=== PATIENT | male | born 1960 | race Caucasian/White ===

== ENCOUNTER 2016-10-22 14:04 | Emergency (ER) | payer MEDICAID ==
[~2016-10-22] VITALS: Ht 162.6 cm; Wt 102.1 kg
[2016-10-22 14:10] VITALS: BP 162/88; PULSE 69; RESP 16; TEMP 97; O2SAT 99
--- NOTE | 2016-10-22 14:15 | NUR ---
Patient triaged and placed in waiting room. VSS and patient appears in no acute distress at this time. Accompanied by SELF, awaiting available bed, and MD notified of need for MSE.
--- NOTE | 2016-10-22 14:59 | NUR ---
ER MD Conrad evaluated patient in triage room
--- NOTE | 2016-10-22 15:05 | NUR ---
Patient to bed 7 ambulatory
--- NOTE | 2016-10-22 15:06 | NUR ---
Patient to ER C/O left calf pain. Patient states that he was sitting for long hours this morning and noticed pain in the left calf 5-8/10 worse when walking. patient also states that he feels pressure in the calf. Visually left/right calf are equal in size, color and temp. AAOx4, unlabored breathing, no signs of acute distress.
--- NOTE | 2016-10-22 15:22 | NUR ---
Dennis anderson in ED - 10/22/16 at 1530 by HUI [facility] Side rails up. Report given to david ayers
[2016-10-22] MEDS ORDERED: CARISOPRODOL 350 MG TABLET PO ONE (16:30)
--- NOTE | 2016-10-22 16:56 | NUR ---
ER MD Conrad at bedside discussing home care with patient
[2016-10-22 17:08] VITALS: BP 131/80; PULSE 76; RESP 16; TEMP 97.9; O2SAT 98
--- NOTE | 2016-10-22 17:08 | NUR ---
Patient given written and verbal discharge instructions and verbalizes understanding. ER MD Conrad discussed with patient the results and treatment provided. Patient in stable condition. ID arm band removed. Patient educated on pain management and to follow up with PMD. Pain Scale 0/10. Opportunity for questions provided and answered.
== END 2016-10-22 17:08 | disposition home or self-care (01) ==
LOC: SED 14:04
DX: R25.2 Cramp and spasm (principal); I10 Essential (primary) hypertension; M79.605 Pain in left leg; E11.9 Type 2 diabetes mellitus without complications
CPT/HCPCS: 93971; 99284

== ENCOUNTER 2018-09-06 18:19 | Inpatient (IN) | payer MEDICAID ==
[~2018-09-06] VITALS: Ht 160 cm; Wt 77.1 kg
[2018-09-06 18:20] VITALS: BP_SYST 135
--- NOTE | 2018-09-06 18:20 | NUR ---
PATIENT TO ROOM# 02 FROM MAIN TRIAGE. AMBULATORY. FAMILY AT THE BEDSIDE.
--- NOTE | 2018-09-06 18:22 | NUR ---
PATIENT REPORTS OF LEFT LATERAL CHEST PAIN, WORSE WITH MOVEMENT AND PALPATION THAT RADIATES TO HIS BACK. STATES THAT THE PAIN HAS WOKEN HIM UP FROM SLEEP. PATIENT PLACED ON CARDIAC MONITORING.
--- NOTE | 2018-09-06 18:30 | NUR ---
MERA MINOR MD, AT THE BEDSIDE FOR PATIENT EVALUATION.
[2018-09-06] MEDS ORDERED: NITROGLYCERIN 0.4 MG TAB.SUBL SL ONE (18:45)
[2018-09-06] MEDS ORDERED: ASPIRIN 325 MG TABLET PO ONE (18:45)
--- NOTE | 2018-09-06 18:46 | NUR ---
PORTABLE X-RAY AT THE BEDSIDE
--- NOTE | 2018-09-06 18:55 | NUR ---
PATIENT REPORTS OF DECREASED PAIN-1/10, POST NITRO AND ASA. PATIENT REFUSING ANY MORE NITRO SL AT THIS TIME. LABS PENDING
[2018-09-06 18:57] LABS: ANION GAP 6 (5-15); CALCIUM 9.5 mg/dL (8.4-11.0); CHLORIDE 104 mmol/L (98-107); CREATININE 1.11 mg/dL (0.55-1.30); GLUCOSE 128 mg/dL (70-99); POTASSIUM 4.2 mmol/L (3.5-5.1); SODIUM SERUM 136 mmol/L (136-145); UREA NITROGEN, BLOOD 12 mg/dL (8-21)
[2018-09-06 18:58] LABS: BASOPHILS # (AUTO) 0.1 K/uL (0.0-0.2); EOSINOPHILS # (AUTO) 0.3 K/uL (0.0-0.4); EOSINOPHILS % (AUTO) 3.4 % (0.0-4.0); GFR AFRICAN AMERICAN 87 mL/min (>90); HEMATOCRIT 46.7 % (36-54); HEMOGLOBIN 14.5 g/dL (14.0-18.0); LYMPHOCYTES # (AUTO) 1.9 K/uL (1.0-5.5); LYMPHOCYTES % (AUTO) 21.1 % (20.5-51.5); MEAN CORPUSCULAR HEMOGLOBIN 23 pg (27-31); MEAN CORPUSCULAR HGB CONC 31 % (32-36); MEAN CORPUSCULAR VOLUME 75 fL (79.0-98.0); MONOCYTES # (AUTO) 0.5 K/uL (0.0-1.0); MONOCYTES % (AUTO) 5.3 % (1.7-9.3); NEUTROPHILS # (AUTO) 6.2 K/uL (1.8-7.7); NEUTROPHILS % (AUTO) 69.2 % (40.0-70.0); PLATELET COUNT (AUTO) 209 K/uL (130-430); RED BLOOD CELL COUNT(AUTO) 6.25 MIL/uL (4.2-6.2); RED CELL DISTRIBUTION WIDTH 14.7 % (9.0-15.0)
[2018-09-06 19:00] LABS: INR 0.9 (0.80-1.20); PROTHROMBIN TIME 9.7 SECS (9.5-12.5)
[2018-09-06 19:05] LABS: ALANINE AMINOTRANSFERASE 39 U/L (12-78); ALBUMIN 3.6 g/dL (3.4-4.8); ASPARTATE AMINOTRANSFERASE 23 U/L (10-37); TOTAL BILIRUBIN 0.6 mg/dL (0.0-1.0)
[2018-09-06 19:42] LABS: BILIRUBIN,URINE NEGATIVE (NEGATIVE); BLOOD, URINE NEGATIVE (NEGATIVE); CLARITY/URINE CLEAR (CLEAR); COLOR,URINE YELLOW (YELLOW); GLUCOSE,URINE NEGATIVE (NEGATIVE); KETONES,URINE NEGATIVE (NEGATIVE); LEUKOCYTE ESTERASE ,URINE NEGATIVE (NEGATIVE); NITRITE, URINE NEGATIVE (NEGATIVE); PROTEIN URINE NEGATIVE (NEGATIVE); UROBILINOGEN,URINE 0.2 (0.2-1.0)
[2018-09-06] MEDS ORDERED: METF10004 PO (20:50)
[2018-09-06] MEDS ORDERED: ESOM2.5S PO (20:50)
[2018-09-06] MEDS ORDERED: DULA0.75 SQ (20:50)
[2018-09-06] MEDS ORDERED: CHOL200041 PO (20:50)
[2018-09-06] MEDS ORDERED: LOSA25TA3 PO (20:50)
[2018-09-06] MEDS ORDERED: ATORVASTATIN 20 MG TABLET PO SCH (21:00)
--- NOTE | 2018-09-06 21:00 | NUR ---
Unable to get exit strip for transfer due to monitor malfunctioning.
--- NOTE | 2018-09-06 21:15 | NUR ---
Patient will be admitted to care of DR. SHEPPARD. Admitted to Tele unit. Will go to room 107A. Belongings list completed. Summary report printed. Report will be given at bedside.
--- NOTE | 2018-09-06 21:30 | NUR ---
Transfer to TELE via ACLS protocol. Licensed nurse present. IV present no signs or symptoms of infiltration.
--- NOTE | 2018-09-06 22:35 | NUR ---
Initial RN notes Received pt from ED. Pt AAOx4, VSS. Pt c/o chest pain 10/27. No acute distress noted. IV R. AC 20G saline lock clear, patent. Call light within reach. Encouraged pt to call for assistance, pt agreeable. Will continue to monitor.
[2018-09-06 22:46] VITALS: BP_SYST 128
[2018-09-06] MEDS ORDERED: LISINOPRIL 10 MG TABLET (PRINIVIL) PO SCH (23:00)
[2018-09-06] MEDS: METOPROLOL SUCCINATE 25 MG TAB.SR.24H (TOPROL XL) PO SCH (23:34)
--- NOTE | 2018-09-06 23:34 | NUR ---
Rounds Pt asleep, easily arousable. No s/s distress noted. Nighttime meds passed, educated pt on possible side effect of Toprol, pt verb understanding. Pt denies any pain or dizziness. Call light within reach. Bed low, locked, side rails x2 up. To monitor.
[2018-09-06] MEDS ORDERED: NACL 0.9% 1,000 ML IV SCH (23:47)
[2018-09-07] MEDS ORDERED: ZOLPIDEM TARTRATE 5 MG TABLET PO PRN
[2018-09-07] MEDS ORDERED: HYDROcodone/ACETAMIN 5-325 MG TAB (NORCO/ VICODIN) PO PRN
[2018-09-07] MEDS ORDERED: INSULIN ASPART 100 UNITS/ML, 10 ML VIAL (NovoLOG) SUBCUT PRN
[2018-09-07] MEDS ORDERED: LORazepam 2 MG/ML VIAL IVP PRN
[2018-09-07] MEDS ORDERED: ACETAMINOPHEN 325 MG TABLET PO PRN
[2018-09-07] MEDS ORDERED: DOCUSATE SODIUM 100 MG CAPSULE PO PRN
[2018-09-07] MEDS ORDERED: ONDANSETRON HCL 4 MG/2 ML VIAL IVP PRN
[2018-09-07] MEDS ORDERED: DEXTROSE 50% JECT 50 ML DISP.SYRIN IVP PRN
--- NOTE | 2018-09-07 01:00 | NUR ---
Rounds Pt asleep. Explain to pt IV fluids ordered. Started IVF R. AC 20G good blood return. Call light within reach. Pt ambulates to bathroom steady gait. To monitor.
[2018-09-07 03:25] LABS: ANION GAP 4 (5-15); CALCIUM 8.9 mg/dL (8.4-11.0); CHLORIDE 106 mmol/L (98-107); GLUCOSE 127 mg/dL (70-99); POTASSIUM 3.7 mmol/L (3.5-5.1); SODIUM SERUM 139 mmol/L (136-145); UREA NITROGEN, BLOOD 12 mg/dL (8-21)
[2018-09-07 03:26] LABS: BASOPHILS # (AUTO) 0.1 K/uL (0.0-0.2); BASOPHILS % (AUTO) 1.5 % (0.0-2.0); EOSINOPHILS # (AUTO) 0.4 K/uL (0.0-0.4); EOSINOPHILS % (AUTO) 4.5 % (0.0-4.0); HEMATOCRIT 46.6 % (36-54); HEMOGLOBIN 13.9 g/dL (14.0-18.0); LYMPHOCYTES % (AUTO) 21.4 % (20.5-51.5); MEAN CORPUSCULAR HEMOGLOBIN 23 pg (27-31); MEAN CORPUSCULAR HGB CONC 30 % (32-36); MEAN CORPUSCULAR VOLUME 76 fL (79.0-98.0); MONOCYTES # (AUTO) 0.7 K/uL (0.0-1.0); MONOCYTES % (AUTO) 7.3 % (1.7-9.3); NEUTROPHILS # (AUTO) 6.3 K/uL (1.8-7.7); PLATELET COUNT (AUTO) 204 K/uL (130-430); RED BLOOD CELL COUNT(AUTO) 6.11 MIL/uL (4.2-6.2); RED CELL DISTRIBUTION WIDTH 14.9 % (9.0-15.0); WHITE BLOOD COUNT (AUTO) 9.5 K/uL (4.8-10.8)
[2018-09-07 03:30] LABS: GFR AFRICAN AMERICAN 88 mL/min (>90)
[2018-09-07 03:40] LABS: LIPASE 200 U/L (73-393)
[2018-09-07 04:00] LABS: CHOLESTEROL 146 mg/dL (<200); HDL CHOLESTEROL 35 mg/dL (>45); LDL CHOLESTEROL 103 mg/dL (<100); TRIGLYCERIDES 67 mg/dL (30-150)
[2018-09-07 04:06] LABS: NEUTROPHILS % (AUTO) 65.3 % (40.0-70.0)
--- NOTE | 2018-09-07 04:30 | NUR ---
Rounds Pt asleep. No s/s distress noted. IVF infusing as ordered. No s/s infiltration noted. To monitor.
--- NOTE | 2018-09-07 06:16 | NUR ---
Closing notes Pt asleep, easily arousable. No s/s distress noted. Blood sugar checked 144, no indication for insulin per protocol. IVF infusing as ordered R. AC no s/s infiltration noted. Safety measures in place. Call light within reach. To endorse to AM nurse.
[2018-09-07] MEDS ORDERED: metFORMIN HCL 500 MG TABLET PO SCH (08:00)
--- NOTE | 2018-09-07 08:10 | NUR ---
Opening note patient is resting in bed with eyes open, patient denies any chest pain at this time, patient denies any acute distress, breathing is even and unlabored, IVF is infusing well with no signs of infiltration, educated patient on plan of care and call light system, will continue to monitor, safety precautions in place, call light within reach.
[2018-09-07 08:35] VITALS: BP_SYST 125
[2018-09-07] MEDS: METOPROLOL SUCCINATE 25 MG TAB.SR.24H (TOPROL XL) PO SCH (08:46)
[2018-09-07] MEDS ORDERED: HEPARIN SODIUM,PORCINE 5000 UNITS/ML VIAL SUBCUT SCH (09:00)
[2018-09-07] MEDS ORDERED: LOSARTAN POTASSIUM 25 MG TABLET PO SCH (09:00)
[2018-09-07] MEDS ORDERED: ASPIRIN 81 MG TAB.CHEW PO SCH (09:00)
[2018-09-07] MEDS ORDERED: PANTOPRAZOLE SODIUM 40 MG TAB PO ONE (09:30)
--- NOTE | 2018-09-07 10:00 | NUR ---
NOTES PATIENT IS RESTING IN BED ALERT AND ORIENTED X 4, IVF INFUSING WELL WITH NO SIGNS OF INFILTRATION, NO ACUTE DISTRESS NOTED, BREATHING IS EVEN AND UNLABORED, WILL CONTINUE TO MONITOR, SAFETY PRECAUTIONS IN PLACE, CALL LIGHT WITHIN REACH.
--- NOTE | 2018-09-07 11:43 | NUR ---
BLOOD SUGAR BLOOD SUGAR IS 174 AT THIS TIME, PATIENT REFUSED INSULIN FOR COVERAGE.
[2018-09-07 12:29] VITALS: BP_SYST 120
--- NOTE | 2018-09-07 13:40 | NUR ---
AMA: Patient does not wish to proceed with medical care recommended by DR. SHEPPARD. Patient given information related to possible complications, up to and including , which could occur as a result of leaving hospital at this time. Patient verbalizes understanding of risks involved leaving against medical advice. Patient has signed AMA form.
[2018-09-08] MEDS ORDERED: PANTOPRAZOLE SODIUM 40 MG TAB PO SCH (09:00)
== END 2018-09-07 13:39 | disposition left against medical advice (07) | DRG 243 ==
LOC: SED 18:19 → STU 21:00
PROVIDERS: ADMIT Family Medicine; ATTEND Family Medicine
DX: K21.9 Gastro-esophageal reflux disease without esophagitis (principal); I24.9 Acute ischemic heart disease, unspecified; I10 Essential (primary) hypertension; E11.9 Type 2 diabetes mellitus without complications; Z53.21 Procedure and treatment not carried out due to patient leaving prior to being seen by health care provider; E78.5 Hyperlipidemia, unspecified; Z79.899 Other long term (current) drug therapy
CPT/HCPCS: 36415; 71045; 80048; 80053; 80061; 81003; 82550-TC; 82962; 83036; 83690-TC; 83735-TC; 83880; 84100-TC; 84443-TC; 84484; 85025; 85610-TC; 93005; 93306; 99285; G0378; J1644; J1815; J7030

== ENCOUNTER 2019-10-13 15:13 | Emergency (ER) | payer MEDICAID ==
[~2019-10-13] VITALS: Ht 170.2 cm; Wt 86.2 kg
[~2019-10-13 15:13] MED LIST: CHOL200041 PO; DULA0.75 SQ; ESOM2.5S PO; LOSA25TA3 PO; METF-381 PO
[2019-10-13 15:15] VITALS: BP_SYST 110
--- NOTE | 2019-10-13 16:00 | NUR ---
Patient to ER bed 6 to gown for evaluation. Side rails up.
--- NOTE | 2019-10-13 16:05 | NUR ---
Patient arrived in the ED c/o hypotension, dizziness, and cough that started today. Been on Keto diet for the last 3 months. Patient denied any chest pain or shortness of breath. Denied any fevers, chills, nausea, or vomiting. Patient is alert and oriented x4, respirations even and unlabored, speaking in full sentences, ambulating with a steady gait. VSS, pain level 6/10. Informed of approximate wait time. Instructed to notify ED staff for any changes in condition or worsening of symptoms. Patient verbalized understanding.
--- NOTE | 2019-10-13 16:27 | NUR ---
ER Dr. Fontanez at bedside examining patient.
--- NOTE | 2019-10-13 16:42 | NUR ---
# 20 gauge angiocath placed on the LAC. Use of asceptic technique. Opsite placed over site. Blood return noted. Blood for lab drawn from site. Flushed with 10 cc of normal saline. No evidence of infiltration noted. Patient tolerated well.
--- NOTE | 2019-10-13 16:44 | NUR ---
Medicated per MD orders. IVF infusing with no s/s of infiltration at this time. Will cont to monitor
[2019-10-13] MEDS ORDERED: NACL 0.9% 1,000 ML IV ONE (16:45)
[2019-10-13 16:51] LABS: BASOPHILS % (AUTO) 0.4 % (0.0-2.0); EOSINOPHILS % (AUTO) 0.4 % (0.0-4.0); HEMATOCRIT 43.9 % (36-54); HEMOGLOBIN 13.9 g/dL (14.0-18.0); LYMPHOCYTES % (AUTO) 11.4 % (20.5-51.5); MEAN CORPUSCULAR HEMOGLOBIN 25 pg (27-31); MEAN CORPUSCULAR HGB CONC 32 % (32-36); MEAN CORPUSCULAR VOLUME 79 fL (79.0-98.0); MONOCYTES # (AUTO) 0.7 K/uL (0.0-1.0); NEUTROPHILS # (AUTO) 7.1 K/uL (1.8-7.7); NEUTROPHILS % (AUTO) 79.8 % (40.0-70.0); PLATELET COUNT (AUTO) 158 K/uL (130-430); RED BLOOD CELL COUNT(AUTO) 5.59 MIL/uL (4.2-6.2); RED CELL DISTRIBUTION WIDTH 16.2 % (9.0-15.0); WHITE BLOOD COUNT (AUTO) 8.9 K/uL (4.8-10.8)
--- NOTE | 2019-10-13 16:52 | NUR ---
ECG done at bedside as ordered by Dr. Fontanez. Patient tolerated the procedure well. Report given to
[2019-10-13 17:04] LABS: CALCIUM 8.9 mg/dL (8.4-11.0); CREATININE 1.92 mg/dL (0.55-1.30); POTASSIUM 3.4 mmol/L (3.5-5.1)
[2019-10-13 17:14] LABS: ALBUMIN 3.3 g/dL (3.4-4.8); TOTAL BILIRUBIN 0.6 mg/dL (0.0-1.0)
--- NOTE | 2019-10-13 17:16 | NUR ---
Patient taken to CT, in stable condition.
--- NOTE | 2019-10-13 18:14 | NUR ---
Patient ambulated to the bathroom with a steady gait.
--- NOTE | 2019-10-13 19:21 | NUR ---
ER Dr. Fontanez at bedside giving discharge instructions to the patient.
--- NOTE | 2019-10-13 19:24 | NUR ---
Report given and care transferred to HEATHER Rondon.
[2019-10-13 19:50] VITALS: BP_SYST 101
--- NOTE | 2019-10-13 19:50 | NUR ---
Patient given written and verbal discharge instructions and verbalizes understanding. ER MD discussed with patient the results and treatment provided. Patient in stable condition. ID arm band removed. IV catheter removed intact and dressing applied, no active bleeding. Rx of zithromax given. Patient educated on pain management and to follow up with PMD. Pain Scale 0/10. Opportunity for questions provided and answered. Medication side effect fact sheet provided.
== END 2019-10-13 19:50 | disposition home or self-care (01) ==
LOC: SED 15:13
DX: J01.90 Acute sinusitis, unspecified (principal); I12.9 Hypertensive chronic kidney disease with stage 1 through stage 4 chronic kidney disease, or unspecified chronic kidney disease; E11.22 Type 2 diabetes mellitus with diabetic chronic kidney disease; N18.9 Chronic kidney disease, unspecified; Z79.899 Other long term (current) drug therapy
CPT/HCPCS: 36415; 70450; 80053; 85025; 96360; 99284; J7030; 93005